=== PATIENT | female | born 1945 | race Caucasian/White ===

== ENCOUNTER 2017-03-21 11:51 | Observation (INO) | payer MEDICARE, BC ==
[~2017-03-21] VITALS: Ht 170.2 cm; Wt 93.5 kg
[~2017-03-21 11:51] MED LIST: CARTIA XT240 MG PO; PANTOPRAZOLE SO40 MG PO; RAMIPRIL5 MG PO; TRIAMTERENE-HC1 EAC2 PO
--- NOTE | 2017-03-21 13:31 | Diagnostic Imaging Report ---
PROCEDURE:CHEST SINGLE (NOT PORTABLE) TECHNIQUE:Portable AP chest INDICATION:UTI; syncope; possible reaction antibiotics. COMPARISON:None. FINDINGS: Lungs are clear and symmetrical inflated. No pleural effusions. Normal heart size, mediastinal contour, and pulmonary vasculature. Intact skeleton. CONCLUSION: No acute abnormality. Dictated by: Rowdy Kang M.D. on 03/21/2017 at 13:38 Electronically approved by: Rowdy Kang M.D. on 03/21/2017 at 13:38
[2017-03-21] MEDS ORDERED: IBUPROFEN 400 MG TAB PO ONE (15:15)
[2017-03-21 15:20] LABS: BASOPHILS # (AUTO) 0.1 (0.0-0.1); BASOPHILS % 0.4 % (0.0-1.0); EOSINOPHILS # (AUTO) 0.2 (0.0-0.4); EOSINOPHILS % 0.9 % (0.0-6.0); HEMATOCRIT 42.6 % (34.2-44.1); HEMOGLOBIN 15.1 g/dL (12.0-16.0); LYMPHOCYTES # (AUTO) 2.1 (1.0-3.2); LYMPHOCYTES % 13.4 % (18.0-39.1); MEAN CORPUSCULAR HEMOGLOBIN 30.9 pg (28-32); MEAN CORPUSCULAR HGB CONC 35.4 g/dL (31-35); MEAN CORPUSCULAR VOLUME 87.1 fL (81-99); MONOCYTES # (AUTO) 0.5 (0.2-0.8); MONOCYTES % 2.8 % (4.4-11.3); PLATELET COUNT 216 x10e3/uL (140-360); RED BLOOD COUNT 4.89 x10e6/uL (3.6-5.1); RED CELL DISTRIBUTION WIDTH 12.5 % (11.7-14.4)
[2017-03-21 15:30] LABS: INR 1.03
[2017-03-21 15:31] LABS: PARTIAL THROMBOPLASTIN TIME 29.7 seconds (23.8-35.5)
[2017-03-21 15:37] LABS: ALBUMIN/GLOBULIN RATIO 0.7 (0.8-2.0); ANION GAP 15.6 mmol/L (8-16); CALCIUM 9.4 mg/dL (8.4-10.2); CREATININE, SERUM 0.97 mg/dL (0.57-1.11); POTASSIUM 3.6 mmol/L (3.5-5.1)
[2017-03-21 15:44] LABS: CREATINE KINASE MB 0.9 ng/mL (0.00-5.00); TROPONIN I 0.011 ng/mL (0-0.300)
[2017-03-21 16:14] LABS: BILIRUBIN,URINE 1+ (NEGATIVE); KETONES,URINE NEGATIVE (NEGATIVE); LEUKOCYTE ESTERASE ,URINE 1+ (NEGATIVE); NITRITE,URINE NEGATIVE (NEGATIVE); URINE UROBILINOGEN 0.2 mg/dL (0.2 - 1)
[2017-03-21 16:16] LABS: CLARITY,URINE SL CLOUDY (CLEAR); COLOR,URINE STRAW (YELLOW); PROTEIN,URINE DIPSTICK TRACE (NEGATIVE)
[2017-03-21 16:28] LABS: WBC,URINE (MAN) 0-5 /HPF (0-5)
[2017-03-21 16:29] LABS: BACTERIA,URINE MODERATE /HPF; EPITHELIAL CELLS,URINE RARE /LPF; RBC,URINE 0-5 /HPF (0-5)
[2017-03-21] MEDS ORDERED: SODIUM CHLORIDE 0.9% 1000ML 1,000 ML IV SCH (18:25)
[2017-03-21] MEDS ORDERED: ONDANSETRON HCL INJ 2 MG/ML VIAL IV PRN (18:30)
[2017-03-21] MEDS ORDERED: DEXTROSE 50% SYRINGE 50 ML IV PRN (18:45)
[2017-03-21] MEDS ORDERED: CARTIA XT240 MG PO (19:09)
[2017-03-21] MEDS ORDERED: CELEBREX100 MG PO (19:09)
[2017-03-21] MEDS: CEFTRIAXONE SOD 1 GM VIAL IV SCH (19:09)
[2017-03-21] MEDS: WATER STERILE 10 ML VIAL IV SCH (19:09)
[2017-03-21] MEDS: SODIUM CHLORIDE 0.9% 1000ML 1,000 ML IV SCH ×2 (19:09→22:19)
[2017-03-21] MEDS ORDERED: UCERIS PO (19:09)
[2017-03-21] MEDS ORDERED: CRESTOR10 MG PO (19:09)
[2017-03-21] MEDS: INSULIN REGULAR, HUMAN 100 UNIT/1 ML 3ML VIAL SQ SCH (20:27)
[2017-03-21 22:07] VITALS: BP 136/60
[2017-03-21 22:40] VITALS: BP 136/60
[2017-03-21 23:38] LABS: CREATINE KINASE 96 IU/L (29-168)
[2017-03-21 23:44] LABS: TROPONIN I < 0.001 ng/mL (0-0.300)
[2017-03-22] VITALS (7 sets, daily range): BP systolic 108–135; BP diastolic 55–67
[2017-03-22] MEDS ORDERED: ACETAMINOPHEN 325 MG TAB PO PRN (06:30)
[2017-03-22] MEDS: TRAMADOL HCL 50 MG TAB PO PRN ×2 (06:39→23:54)
[2017-03-22 06:56] LABS: BASOPHILS # (AUTO) 0.1 (0.0-0.1); BASOPHILS % 0.4 % (0.0-1.0); EOSINOPHILS # (AUTO) 0.5 (0.0-0.4); EOSINOPHILS % 4.2 % (0.0-6.0); HEMATOCRIT 37.7 % (34.2-44.1); HEMOGLOBIN 13.1 g/dL (12.0-16.0); LYMPHOCYTES # (AUTO) 2.2 (1.0-3.2); LYMPHOCYTES % 17.2 % (18.0-39.1); MEAN CORPUSCULAR HEMOGLOBIN 30.8 pg (28-32); MEAN CORPUSCULAR HGB CONC 34.7 g/dL (31-35); MEAN CORPUSCULAR VOLUME 88.7 fL (81-99); MONOCYTES # (AUTO) 0.5 (0.2-0.8); MONOCYTES % 3.5 % (4.4-11.3); NEUTROPHILS # (AUTO) 9.5 (2.1-6.9); NEUTROPHILS % 74.4 % (38.7-80.0); PLATELET COUNT 216 x10e3/uL (140-360); RED BLOOD COUNT 4.25 x10e6/uL (3.6-5.1); RED CELL DISTRIBUTION WIDTH 12.7 % (11.7-14.4)
--- NOTE | 2017-03-22 06:57 | History and Physical ---
PRIMARY CARE PHYSICIAN: Dr. Gardner (sp?) CHIEF COMPLAINT: Passing out and urinary tract infection. HISTORY OF PRESENT ILLNESS: This is a 71-year-old woman with a history of urinary tract infection, who developed urinary discomfort about 7 days ago, started on antibiotics by primary care doctor. Symptoms were not really getting better. Patient had reduced urine output, rigors, angina, and not feeling well. Yesterday, she passed out and with face looking up at the ceiling, lying on her back. She called 911 and came to the hospital for further evaluation and management. PAST MEDICAL HISTORY: Prediabetes, Paget's disease, status post right mastectomy in 2000, osteoarthritis, urinary tract infection, E. coli. PAST SURGICAL HISTORY: Right mastectomy in 2000, hysterectomy, cholecystectomy. ALLERGIES: PER ELECTRONIC MEDICAL RECORD. FAMILY HISTORY/SOCIAL HISTORY: Patient is . She has 1 child. No alcohol, illicits or cigarettes. MEDICATIONS: Per electronic medical record. REVIEW OF SYSTEMS: Denies any dizziness or chest pain. PHYSICAL EXAMINATION VITAL SIGNS: Reviewed. GENERAL APPEARANCE: Tired-appearing man resting in bed. HEENT: Anicteric. Pupils respond to light. No oral lesions. CARDIOVASCULAR: Normal S1, S2. LUNGS: Coarse breath sounds. ABDOMEN: Soft, nontender, nondistended. EXTREMITIES: No edema, calf tenderness. NEUROLOGICAL: Alert and oriented times 3. Moving extremities. SKIN: Dry. PSYCHIATRIC: Normal affect. LABS: Reviewed. MEDICATIONS: Reviewed. ASSESSMENT AND PLAN: This is a 71-year-old woman. 1. Syncope. Likely related to the urinary tract infection; however, will need to do a workup. Will get a 2-dimensional echocardiogram cardiogram and carotid ultrasounds. 2. Urinary tract infection. She states she has Escherichia coli. Will treat her with ceftriaxone and followup cultures. 3. Acute kidney injury. Will give intravenous fluids and reassess. 4. Hyponatremia. Will rehydrate patient. 5. Dehydration. Will rehydrate patient. Rule out syncope. Will obtain orthostatic vital signs. 6. Leukocytosis. Likely related to urinary tract infection. 7. Obesity. Body mass index is 30.5/prediabetes. Will obtain hemoglobin A1c and lipid panel. 8. Prophylaxis. Lovenox and proton pump inhibitor. 9. Disposition. Obtain orthostatic vitals. Get physical therapy. Job#: [id number] CQ
[2017-03-22 07:23] LABS: TROPONIN I 0.009 ng/mL (0-0.300)
[2017-03-22] MEDS: INSULIN REGULAR, HUMAN 100 UNIT/1 ML 3ML VIAL SQ SCH ×4 (07:30→20:27)
[2017-03-22 07:31] LABS: ANION GAP 14.6 mmol/L (8-16); BLOOD UREA NITROGEN 20 mg/dL (7-26); BUN/CREATININE RATIO 24 (6-25); CALCIUM 8.6 mg/dL (8.4-10.2); CARBON DIOXIDE 24 mmol/L (22-29); CHLORIDE 100 mmol/L (98-107); CREATINE KINASE 86 IU/L (29-168); CREATININE, SERUM 0.85 mg/dL (0.57-1.11); EST GLOMERULAR FILTRATION RATE > 60 ML/MIN (60-); GLUCOSE 64 mg/dL (74-118); POTASSIUM 3.6 mmol/L (3.5-5.1); SODIUM 135 mmol/L (136-145)
[2017-03-22 07:51] LABS: CHOL/HDL RATIO 8.7 (3.0-3.6)
[2017-03-22] MEDS: RAMIPRIL 5 MG CAP PO SCH (08:49)
[2017-03-22] MEDS: PANTOPRAZOLE SOD 40 MG TABEC PO SCH (08:49)
[2017-03-22] MEDS: SODIUM CHLORIDE 0.9% 1000ML 1,000 ML IV SCH ×3 (10:49→21:35)
[2017-03-22 15:18] LABS: CREATINE KINASE MB 1.3 ng/mL (0.00-5.00); TROPONIN I 0.006 ng/mL (0-0.300)
[2017-03-22] MEDS: WATER STERILE 10 ML VIAL IV SCH (17:17)
[2017-03-22] MEDS: CEFTRIAXONE SOD 1 GM VIAL IV SCH (17:17)
[2017-03-22] MEDS ORDERED: SIMVASTATIN 20 MG TAB PO SCH (21:00)
[2017-03-23] VITALS: BP 133/69
[2017-03-23 04:00] VITALS: BP 127/59
[2017-03-23] MEDS: TRAMADOL HCL 50 MG TAB PO PRN (04:35)
[2017-03-23] MEDS: SODIUM CHLORIDE 0.9% 1000ML 1,000 ML IV SCH (05:00)
[2017-03-23] MEDS ORDERED: KEFLEX500 MG PO (05:58)
--- NOTE | 2017-03-23 06:43 | Discharge Summary ---
PRINCIPAL DIAGNOSES 1. Syncope with normal echocardiogram and no significant stenosis in the carotids. 2. Urinary tract infection. Culture negative. 3. Acute kidney injury. 4. Dehydration. 5. Obesity. Body mass index 30.5. 6. Prediabetes. Hemoglobin A1c 5.9. SECONDARY DIAGNOSIS: Prediabetes. CHIEF COMPLAINT: Passing out. HISTORY OF PRESENT ILLNESS: A 71-year-old woman who passed out. For further details of the history of present illness, refer to the H and P. HOSPITAL COURSE: Patient had a syncopal episode. Echocardiogram normal. Carotid ultrasound negative. No significant stenosis. She had a urinary tract infection and cultures negative. Treated with ceftriaxone. Leukocytosis has been resolving. She will be discharged home on Keflex for 5 additional days. She had hyponatremia and dehydrated treated with IV fluids. Orthostatic vitals were negative. She had obesity with BMI of 30.5. Patient had prediabetes. Hemoglobin A1c here is 5.9. LDL is 81. Patient is doing better and currently appropriate for discharge. Refuses home physical therapy. Therefore, she will be discharged home with plan for followup with her primary care doctor in 1 week. CONDITION ON DISCHARGE: Stable and improving. DISCHARGE LOCATION: Home. FOLLOWUP: Primary care doctor in 1 week. ALYSSA CURRIE MD Job#: [id number]
[2017-03-23 06:56] LABS: BASOPHILS # (AUTO) 0.1 (0.0-0.1); BASOPHILS % 0.5 % (0.0-1.0); EOSINOPHILS # (AUTO) 0.6 (0.0-0.4); EOSINOPHILS % 6.5 % (0.0-6.0); HEMOGLOBIN 11.3 g/dL (12.0-16.0); LYMPHOCYTES % 31.2 % (18.0-39.1); MEAN CORPUSCULAR HEMOGLOBIN 30.8 pg (28-32); MEAN CORPUSCULAR HGB CONC 34.2 g/dL (31-35); MEAN CORPUSCULAR VOLUME 89.9 fL (81-99); MONOCYTES # (AUTO) 0.5 (0.2-0.8); MONOCYTES % 5.6 % (4.4-11.3); NEUTROPHILS # (AUTO) 5.4 (2.1-6.9); NEUTROPHILS % 55.8 % (38.7-80.0); PLATELET COUNT 238 x10e3/uL (140-360); RED BLOOD COUNT 3.67 x10e6/uL (3.6-5.1); RED CELL DISTRIBUTION WIDTH 12.8 % (11.7-14.4)
[2017-03-23] MEDS: INSULIN REGULAR, HUMAN 100 UNIT/1 ML 3ML VIAL SQ SCH (07:30)
[2017-03-23 08:05] VITALS: BP 120/58
[2017-03-23] MEDS: RAMIPRIL 5 MG CAP PO SCH (08:57)
[2017-03-23] MEDS: PANTOPRAZOLE SOD 40 MG TABEC PO SCH (08:57)
== END 2017-03-23 09:18 | disposition home or self-care (01) ==
LOC: ER 11:51 → ERHOLD 19:01 → IMCU 21:04
PROVIDERS: ADMIT Internal Medicine; ATTEND Internal Medicine
DX: R55 Syncope and collapse (principal); R78.81 Bacteremia; N30.91 Cystitis, unspecified with hematuria; N39.0 Urinary tract infection, site not specified; B96.20 Unspecified Escherichia coli [E. coli] as the cause of diseases classified elsewhere; N17.9 Acute kidney failure, unspecified; E87.1 Hypo-osmolality and hyponatremia; E86.0 Dehydration; E66.9 Obesity, unspecified; Z68.30 Body mass index [BMI] 30.0-30.9, adult; R73.09 Other abnormal glucose
CPT/HCPCS: 36415 ×3; 71010; 80048; 80053; 80061; 81001; 82550 ×2; 82553 ×2; 82948 ×3; 83036; 83880; 84484 ×2; 85025 ×3; 85610; 85730; 87086; 87400; 93005; 93306; 93880; 97116; 97161; 99284; G0378 ×3; G8978; G8979; G8980; J0696 ×2; J7030 ×3

== ENCOUNTER → 2018-02-01 | Day surgery (SDC) | payer MEDICARE ==
[2018-01-29 14:46] LABS: BASOPHILS # (AUTO) 0.1 (0.0-0.1); BASOPHILS % 0.8 % (0.0-1.0); EOSINOPHILS # (AUTO) 0.1 (0.0-0.4); EOSINOPHILS % 1.4 % (0.0-6.0); HEMOGLOBIN 14.8 g/dL (12.0-16.0); LYMPHOCYTES # (AUTO) 2.8 (1.0-3.2); LYMPHOCYTES % 37.8 % (18.0-39.1); MEAN CORPUSCULAR HEMOGLOBIN 30.6 pg (28-32); MEAN CORPUSCULAR HGB CONC 33.6 g/dL (31-35); MEAN CORPUSCULAR VOLUME 91.1 fL (81-99); MONOCYTES # (AUTO) 0.7 (0.2-0.8); NEUTROPHILS # (AUTO) 3.6 (2.1-6.9); NEUTROPHILS % 49.7 % (38.7-80.0); PLATELET COUNT 305 x10e3/uL (140-360); RED BLOOD COUNT 4.83 x10e6/uL (3.6-5.1); RED CELL DISTRIBUTION WIDTH 12.4 % (11.7-14.4)
[2018-01-29 15:05] LABS: ANION GAP 12.8 mmol/L (8-16); BLOOD UREA NITROGEN 14 mg/dL (7-26); BUN/CREATININE RATIO 17 (6-25); CALCIUM 9.8 mg/dL (8.4-10.2); CARBON DIOXIDE 29 mmol/L (22-29); CHLORIDE 102 mmol/L (98-107); CREATININE, SERUM 0.83 mg/dL (0.57-1.11); EST GLOMERULAR FILTRATION RATE > 60 ML/MIN (60-); GLUCOSE 83 mg/dL (74-118); POTASSIUM 3.8 mmol/L (3.5-5.1); SODIUM 140 mmol/L (136-145)
[~2018-02-01] MED LIST changes: +BUPIVACAINE 0.25% 30ML SDV INJ ONE; +CELEBREX100 MG PO; +CRESTOR10 MG PO; +DEXAMETHASONE SOD PHOS INJ 4 MG/ML VIAL IV ONE; +FENTANYL CITRATE/PF 100MCG/2 ML INJ ONE; +HEPARIN SOD (PORCINE) 5,000 UNIT/ML VIAL ONE; +HYDROCODONE/APAP 7.5MG-325MG 1 EA TAB ONE; +KEFLEX500 MG PO; +LIDOCAINE HCL 2% LOCAL INJ 5 ML SDV VIAL INJ ONE; +LOMOTIL TABLET1 EACH PO; +MIDAZOLAM HCL 2 MG/2 ML VIAL ONE; +ONDANSETRON HCL INJ 2 MG/ML VIAL IV ONE; +PROPOFOL IV EMULSION 10 MG/ML 20 ML VIAL IV ONE; +SEVOFLURANE INHAL SOLN 250 ML PEN BTL INH ONE; +SODIUM CHLORIDE 0.9% 100 ML 0 ML ONE; +SODIUM CHLORIDE 0.9% 500ML 500 ML ONE; +UCERIS PO
--- OUTSIDE RECORDS SUMMARY | 2018-02-01 11:00 | XMS REPORT ---
Author [facility] Address Unknown Phone Unavailable Care Team Providers Care [employer] Name Role Phone Dasia SHAHID Unavailable Unavailable AMANDA JACOBS Unavailable Unavailable Payers Payer Name Policy Type Policy Number Effective Date Expiration Date Problems This patient has no known problems. Allergies, Adverse Reactions, Alerts Allergy Name Allergy Type Status Severity Reaction(s) Onset Date Inactive Date Treating Clinician Comments PONSTEL DA Active U 2005-04-10 00:00:00 TAPE DA Active U 2005-04-10 00:00:00 Medications This patient has no known medications. Results Test Description Test Time Test Comments Text Results Atomic Results Result Comments CHEST SINGLE (NOT PORTABLE) [place] [id number] Patient Name: DORA MCKOY MR #: [id number] : 1945 Age/Sex: 71/F Req #: [id number] Adm Physician: Ordered by: JESSA SHAHID MD Report #: [id number] Location: ER Room/Bed: Procedure: [id number] DX/CHEST SINGLE (NOT PORTABLE) Exam Date: 03/21/17 Exam Time: 1310 REPORT STATUS: Signed PROCEDURE: CHEST SINGLE (NOT PORTABLE) TECHNIQUE: Portable AP chest INDICATION: UTI; syncope; possible reaction antibiotics. COMPARISON: None. FINDINGS: Lungs are clear and symmetrical inflated. No pleural effusions. Normal heart size, mediastinal contour, and pulmonary vasculature. Intact skeleton. CONCLUSION: No acute abnormality. Dictated by: Jazzy Kang M.D. on 03/21/2017 at 13:38 Electronically approved by: Jazzy Kang M.D. on 03/21/2017 at 13:38 Dictated By: JAZZY KANG MD 37 Transcribed By: RASTA on 03/21/171337 COPY TO: JESSA SHAHID MD HIPS BILAT TWO VWS(+/- PELVIS) [place] [address] Patient Name: DORA MCKOY MR #: [id number] : 1945 Age/Sex: 71/F Req #: [id number] Adm Physician: Ordered by: AMANDA JACOBS MD Report #: [id number] Location: [facility] Room/Bed: Procedure: [id number] DX/HIPS BILAT TWO VWS(+/- PELVIS) Exam Date: Exam Time: REPORT STATUS: Signed PROCEDURE: HIPS BILAT TWO VWS(+/- PELVIS) TECHNIQUE: INDICATION: COMPARISON: None. FINDINGS: No acute fracture or dislocation. Bone mineralization is within normal limits. Degenerative changes evidenced by subchondral sclerosis and marginal osteophytosis. The soft tissues are unremarkable. No expansile or lytic or sclerotic lesion. CONCLUSION: No acute radiographic abnormality. Dictated by: Rosey Valdez M.D. on 01/02/2017 at 11:47 Electronically approved by: Rosey Valdez M.D. on 01/02/2017 at 11:47 Dictated By: ROSEY VALDEZ MD 1147 Transcribed By: RASTA on 01/02/17 1147 COPY TO: AMANDA JACOBS MD SP LUMBAR, COMPLETE MIN 4VW [place] [address] Patient Name: DORA MCKOY MR #: [id number] : 1945 Age/Sex: 71/F Req #: [id number] Adm Physician: Ordered by: AMANDA JACOBS MD Report #: [id number] Location: [facility] Room/Bed: Procedure: [id number] DX/SP LUMBAR, COMPLETE MIN 4VW Exam Date: 01/02/17 Exam Time: 1050 REPORT STATUS: Signed PROCEDURE: L-SPINE COMPLETE COMPARISON: None. INDICATIONS: LOWER BACK PAIN FINDINGS: There are 5 lumbar-type vertebral bodies. Degenerative changes evidenced by anterior osteophytosis at multiple levels and bilateral facet hypertrophy at L4/L5 and L5/S1. The vertebral bodies are well-aligned without evidence of spondylolisthesis. There are no fractures, lytic or blastic lesions. The disc-space heights are well-maintained. The sacroiliac joints are unremarkable. CONCLUSION: No acute radiographic abnormality. Degenerative changes. Dictated by: Rosey Valdez M.D. on 01/02/2017 at 11:51 Electronically approved by: Rosey Valdez M.D. on 01/02/2017 at 11:51 Dictated By: ROSEY VALDEZ MD 1151 Transcribed By: RASTA on 01/02/17 1151 COPY TO: AMANDA JACOBS MD
[2018-02-01 14:15] VITALS: BP 141/73
--- NOTE | 2018-02-01 15:14 | Operative Report ---
DATE OF PROCEDURE: February 01, 2018 PREOPERATIVE DIAGNOSIS: Breast cancer needing intravenous access for chemotherapy. POSTOPERATIVE DIAGNOSIS: Breast cancer needing intravenous access for chemotherapy. OPERATION PERFORMED: Placement of right subclavian venous access port under C-arm guidance. ANESTHESIA: General. COMPLICATIONS: None. ESTIMATED BLOOD LOSS: Minimal. DESCRIPTION OF PROCEDURE: With the patient lying in bed in the Trendelenburg position, under good general anesthesia, the right chest and neck were prepped with Betadine solution and draped in the usual manner. A standard right subclavian venipuncture was performed without any difficulty, and a guidewire was advanced into central venous position. Using the C-arm, the tip of the guidewire was found to be at the level of the superior vena cava, and the right lung was fully expanded. A pocket was then created in the right anterior chest to accept the reservoir, and the catheter was threaded to the subclavian position. The reservoir was then anchored to the anterior chest wall with interrupted sutures of 2-0 silk. The reservoir and catheter were fully heparinized, and the catheter was cut to the appropriate length. The peel-away sheath introducer was then placed over the guidewire. The guidewire was removed, and the catheter was threaded through the peel-away sheath introducer. The peel-away sheath was then removed. There was good blood return, and the reservoir was fully heparinized. Using the C-arm, the tip of the catheter was confirmed to be at the level of the superior vena cava, and the right lung was fully expanded. The wounds were then closed in layers. The subcutaneous tissue was approximated with 3-0 and 4-0 Vicryl. The skin was closed with subcuticular 5-0 Vicryl. Benzoin and Steri-Strips were applied. A dressing was placed. The sponge, lap and needle count was correct. The patient tolerated the procedure well and returned to the recovery room in stable condition. Job#: [id number]
== END | disposition home or self-care (01) ==
LOC: OR 10:57
PROVIDERS: ATTEND Surgery
DX: C50.912 Malignant neoplasm of unspecified site of left female breast (principal); I10 Essential (primary) hypertension; R73.03 Prediabetes; I45.10 Unspecified right bundle-branch block; Z01.810 Encounter for preprocedural cardiovascular examination; Z01.812 Encounter for preprocedural laboratory examination
CPT/HCPCS: 36415; 36561; 77001; 80048; 85025; 93005; C1751; J1100; J1644; J2001; J2250; J2405; J2704; J7040

== ENCOUNTER 2018-02-19 14:46 | Inpatient (IN) | payer MEDICARE ==
[~2018-02-19] VITALS: Ht 167.6 cm; Wt 93.5 kg
[~2018-02-19 14:46] MED LIST changes: -BUPIVACAINE 0.25% 30ML SDV INJ ONE; -DEXAMETHASONE SOD PHOS INJ 4 MG/ML VIAL IV ONE; -FENTANYL CITRATE/PF 100MCG/2 ML INJ ONE; -HEPARIN SOD (PORCINE) 5,000 UNIT/ML VIAL ONE; -HYDROCODONE/APAP 7.5MG-325MG 1 EA TAB ONE; -LIDOCAINE HCL 2% LOCAL INJ 5 ML SDV VIAL INJ ONE; -LOMOTIL TABLET1 EACH PO; -MIDAZOLAM HCL 2 MG/2 ML VIAL ONE; -ONDANSETRON HCL INJ 2 MG/ML VIAL IV ONE; -PROPOFOL IV EMULSION 10 MG/ML 20 ML VIAL IV ONE; -SEVOFLURANE INHAL SOLN 250 ML PEN BTL INH ONE; -SODIUM CHLORIDE 0.9% 100 ML 0 ML ONE; -SODIUM CHLORIDE 0.9% 500ML 500 ML ONE
[2018-02-19] MEDS ORDERED: SODIUM CHLORIDE 0.9% 1000ML 1,000 ML IV STA (14:59)
[2018-02-19] MEDS ORDERED: MORPHINE SULFATE 2 MG/ML SYR IV NR (15:00)
[2018-02-19] MEDS ORDERED: ONDANSETRON HCL INJ 2 MG/ML VIAL IV NR (15:00)
[2018-02-19 15:29] LABS: BASOPHILS # (AUTO) 0.2 (0.0-0.1); EOSINOPHILS % 0.1 % (0.0-6.0); HEMATOCRIT 48.4 % (34.2-44.1); HEMOGLOBIN 16.4 g/dL (12.0-16.0); LYMPHOCYTES # (AUTO) 2.9 (1.0-3.2); LYMPHOCYTES % 19.7 % (18.0-39.1); MEAN CORPUSCULAR HEMOGLOBIN 30.3 pg (28-32); MEAN CORPUSCULAR HGB CONC 33.9 g/dL (31-35); MEAN CORPUSCULAR VOLUME 89.5 fL (81-99); MONOCYTES % 6.6 % (4.4-11.3); NEUTROPHILS # (AUTO) 10.2 (2.1-6.9); PLATELET COUNT 274 x10e3/uL (140-360); RED BLOOD COUNT 5.41 x10e6/uL (3.6-5.1); RED CELL DISTRIBUTION WIDTH 13.2 % (11.7-14.4)
[2018-02-19 15:44] LABS: ALANINE AMINOTRANSFERASE 36 IU/L (0-55); ALBUMIN 4.1 g/dL (3.5-5.0); ALBUMIN/GLOBULIN RATIO 1.3 (0.8-2.0); ALKALINE PHOSPHATASE 96 IU/L (40-150); ANION GAP 16.9 mmol/L (8-16); BLOOD UREA NITROGEN 6 mg/dL (7-26); BUN/CREATININE RATIO 9 (6-25); CALCIUM 9.8 mg/dL (8.4-10.2); CARBON DIOXIDE 23 mmol/L (22-29); CHLORIDE 100 mmol/L (98-107); EST GLOMERULAR FILTRATION RATE > 60 ML/MIN (60-); GLUCOSE 88 mg/dL (74-118); LIPASE 10 U/L (8-78); SODIUM 137 mmol/L (136-145)
[2018-02-19 15:49] LABS: POTASSIUM 2.9 mmol/L (3.5-5.1)
[2018-02-19 16:06] LABS: THYROID STIMULATING HORMONE 1.528 uIU/mL (0.350-4.940)
[2018-02-19] MEDS ORDERED: ACETAMINOPHEN 1000 MG/100 ML IV NR (16:09)
[2018-02-19 16:31] LABS: BILIRUBIN,URINE NEGATIVE (NEGATIVE); CLARITY,URINE SL CLOUDY (CLEAR); COLOR,URINE YELLOW (YELLOW); KETONES,URINE 1+ (NEGATIVE); LEUKOCYTE ESTERASE ,URINE TRACE (NEGATIVE); NITRITE,URINE NEGATIVE (NEGATIVE); PROTEIN,URINE DIPSTICK NEGATIVE (NEGATIVE); URINE UROBILINOGEN 0.2 mg/dL (0.2 - 1)
[2018-02-19 16:46] LABS: EPITHELIAL CELLS,URINE FEW /LPF; RENAL EPITHELIAL CELLS,URINE FEW
[2018-02-19 16:49] LABS: LYMPHOCYTES % (MANUAL) 25 % (19-48); MONOCYTES % (MANUAL) 12 % (3.4-9.0); NEUTROPHILS % (MANUAL) 63 % (40-74); PLATELET ESTIMATE ADEQUATE; PLATELET MORPHOLOGY COMMENT NORMAL; POLYCHROMASIA MODE; RBC MORPHOLOGY COMMENT NORMAL
[2018-02-19] MEDS ORDERED: POTASSIUM CHLORIDE 20MEQ/100ML 200 ML IV ONE (17:00)
--- NOTE | 2018-02-19 17:20 | Diagnostic Imaging Report ---
EXAM: CT Abdomen and Pelvis WITH contrast INDICATION: Pain COMPARISON: None. TECHNIQUE: Abdomen and Pelvis was scanned utilizing a multidetector helical scanner after administration of IV contrast. Coronal and sagittal reformations were obtained. IV CONTRAST: 100 mL Isovue-370 COMPLICATIONS: None RADIATION DOSE: Total DLP:736 mGy*cm Estimated effective dose: (DLP x 0.015 x size factor) mSv CTDIvol has been reviewed. It is below the limits set by the Radiation Protocol Committee (RPC). Appropriate CT dose reduction techniques were utilized. FINDINGS: Abdomen: Lung Bases: No acute findings. Solid Organs: Cystic lesions left hepatic lobe. To small to characterize hypodensities kidneys. Solid organs otherwise unremarkable. Upper GI Tract: No small bowel obstructive changes. Vascularity: Vascular calcifications with no aortic aneurysm. Lymph Nodes: No suspicious adenopathy. Other: None. Pelvis: Bladder: Unremarkable. Other: Uterus absent. Colon: Scattered diverticula sigmoid colon with no CT evidence of diverticulitis. Appendix not inflamed. Overall decompression of the colon limits evaluation. Bones: Degenerative changes. IMPRESSION: 1. No definite acute findings within the abdomen or pelvis. 2. Diverticulosis. Subtle diverticulitis possible, with no significant inflammation or abscess identified, however. Signed by: Dr. Dorian Wolfe MD on 02/19/2018 5:17 PM
[2018-02-19] MEDS: PIPER-TAZ 3.375 GM 50 ML IV SCH (18:35)
[2018-02-19] MEDS ORDERED: SODIUM CHLORIDE 0.9% 500ML 500 ML ONE (19:10)
[2018-02-19] MEDS ORDERED: SODIUM CHLORIDE 0.9% 500ML 500 ML IV ONE (19:15)
[2018-02-19] MEDS ORDERED: MORPHINE SULFATE 2 MG/ML SYR IV PRN (19:15)
[2018-02-19] MEDS: SODIUM CHLORIDE 0.9% 1000ML 1,000 ML IV SCH (20:21)
[2018-02-19 21:15] VITALS: BP 159/77
[2018-02-19 22:10] VITALS: BP 116/67
[2018-02-19 22:26] VITALS: BP 116/67
[2018-02-19] MEDS ORDERED: IOPAMIDOL 370 MG/ML 200 ML INFUS..BTL INJ ONE (22:53)
[2018-02-19] MEDS ORDERED: SODIUM CHLORIDE 0.9% 50ML 50 ML ONE (22:53)
[2018-02-20] VITALS (8 sets, daily range): BP systolic 108–160; BP diastolic 59–88
[2018-02-20] MEDS ORDERED: DIPHENOXYLATE/ATROPINE TAB PO ONE ×2 (02:30)
[2018-02-20 05:15] LABS: BASOPHILS # (AUTO) 0.2 (0.0-0.1); BASOPHILS % 1.2 % (0.0-1.0); EOSINOPHILS % 0.1 % (0.0-6.0); HEMATOCRIT 43.9 % (34.2-44.1); HEMOGLOBIN 14.5 g/dL (12.0-16.0); LYMPHOCYTES # (AUTO) 3.4 (1.0-3.2); MEAN CORPUSCULAR HEMOGLOBIN 30.1 pg (28-32); MEAN CORPUSCULAR VOLUME 91.3 fL (81-99); MONOCYTES # (AUTO) 1.3 (0.2-0.8); MONOCYTES % 7.6 % (4.4-11.3); NEUTROPHILS # (AUTO) 11.8 (2.1-6.9); NEUTROPHILS % 69.4 % (38.7-80.0); PLATELET COUNT 237 x10e3/uL (140-360); RED BLOOD COUNT 4.81 x10e6/uL (3.6-5.1); RED CELL DISTRIBUTION WIDTH 13.3 % (11.7-14.4)
[2018-02-20 06:01] LABS: ALANINE AMINOTRANSFERASE 27 IU/L (0-55); ALBUMIN 3.6 g/dL (3.5-5.0); ALBUMIN/GLOBULIN RATIO 1.3 (0.8-2.0); ALKALINE PHOSPHATASE 83 IU/L (40-150); BLOOD UREA NITROGEN 5 mg/dL (7-26); BUN/CREATININE RATIO 7 (6-25); CALCIUM 8.9 mg/dL (8.4-10.2); CARBON DIOXIDE 22 mmol/L (22-29); CHLORIDE 107 mmol/L (98-107); CREATININE, SERUM 0.67 mg/dL (0.57-1.11); EST GLOMERULAR FILTRATION RATE > 60 ML/MIN (60-); GLUCOSE 82 mg/dL (74-118); SODIUM 138 mmol/L (136-145)
[2018-02-20] MEDS: PIPER-TAZ 3.375 GM 50 ML IV SCH ×4 (06:47→17:13)
[2018-02-20] MEDS: SODIUM CHLORIDE 0.9% 1000ML 1,000 ML IV SCH ×4 (06:47→23:40)
[2018-02-20] MEDS ORDERED: POTASSIUM CHLORIDE 20MEQ/100ML 200 ML IV ONE (07:30)
--- NOTE | 2018-02-20 07:55 | History and Physical ---
A 72-year-old female with a history of breast cancer undergoing chemotherapy arrives with abdominal pain, diarrhea and cramping. HISTORY OF PRESENT ILLNESS: This is Ms. Phoenix with a history of left breast cancer undergoing therapy. Was in her usual state of health until about 2 days prior to admission. The patient started having some abdominal pain, but 1 day prior to admission the cramping got incessant and increasing in nature, and came in. Was found to have early signs of diverticulitis by CT. The patient is admitted for the same. PAST MEDICAL HISTORY: History of hypertension, history of anxiety, history of hyperlipidemia. MEDICATIONS: She takes at home are: 1. Diltiazem 240 mg q.24 h. 2. Ramipril 5 mg daily. 3. Rosuvastatin 10 mg. SURGICAL HISTORY: History of right mastectomy, cholecystectomy, hysterectomy, history of breast cancer on the right side too. SOCIAL HISTORY: No ETOH. No IV drug abuse. Undergoing chemotherapy. FAMILY HISTORY: Hypertension and cancer in sister, and Alzheimer's disease in father. REVIEW OF SYSTEMS: Negative for chest pain. No shortness of breath. No nausea or vomiting. Positive for diarrhea. Positive for loose watery stools. No diplopia. No blurry vision. No headache either. PHYSICAL EXAMINATION GENERAL: The patient is alert and oriented times 3. VITAL SIGNS: Temperature is 96.9, blood pressure is 159/77 and today is 108/59. HEENT: Normocephalic and atraumatic. Pupils are reactive to light and accommodation. CV: S1 and S2 normal. Regular rate and rhythm. ABDOMEN: Tender in the left lower quadrant. EXTREMITIES: No clubbing. No cyanosis. No edema. LABORATORY VALUES: White count was 14,000 yesterday, hemoglobin 16.4, neutrophil count 10.2, white count today is 17,000 with a left shift. Chemistry show a sodium of 137, potassium 3.9, BUN 6, creatinine 0.7. Today, potassium is 3. CT scan shows no acute findings of diverticulosis, subtle diverticulitis possible with no significant inflammation or abscess identified. ASSESSMENT 1. Abdominal pain and colitis possibly secondary to chemotherapy and/or because of early signs of diverticulitis: Plan is to continue with the Zosyn that she is on right now. Lomotil will be given. Also, continue with intravenous fluids for fluid resuscitation. 2. History of chemotherapy for left breast cancer. 3. Hypertension: Will hold off on antihypertensives because of the low blood pressure. Urine culture and blood cultures are pending. Will continue monitoring the patient. Rehydration will be done. Hypokalemia will be replaced. For further information, look in the chart. Job#: [id number] JOHN
[2018-02-20] MEDS: DIPHENOXYLATE/ATROPINE TAB PO PRN ×2 (09:30→13:41)
[2018-02-20] MEDS ORDERED: DILTIAZEM HCL 240 MG PO SCH (13:00)
[2018-02-20] MEDS: RAMIPRIL 5 MG CAP PO SCH (13:19)
[2018-02-20] MEDS: DILTIAZEM HCL ER 120 MG CAPCR PO SCH (13:19)
[2018-02-20] MEDS ORDERED: SIMVASTATIN 40 MG TAB PO SCH (21:00)
[2018-02-20] MEDS: SIMVASTATIN 20 MG TAB PO SCH (21:00)
[2018-02-21] VITALS (8 sets, daily range): BP systolic 135–151; BP diastolic 63–70
[2018-02-21 05:13] LABS: BASOPHILS # (AUTO) 0.1 (0.0-0.1); BASOPHILS % 1.4 % (0.0-1.0); EOSINOPHILS % 0.4 % (0.0-6.0); HEMATOCRIT 38.7 % (34.2-44.1); HEMOGLOBIN 12.9 g/dL (12.0-16.0); LYMPHOCYTES # (AUTO) 2.8 (1.0-3.2); LYMPHOCYTES % 27.6 % (18.0-39.1); MEAN CORPUSCULAR HEMOGLOBIN 30.5 pg (28-32); MEAN CORPUSCULAR HGB CONC 33.3 g/dL (31-35); MEAN CORPUSCULAR VOLUME 91.5 fL (81-99); MONOCYTES # (AUTO) 0.7 (0.2-0.8); MONOCYTES % 7.2 % (4.4-11.3); NEUTROPHILS # (AUTO) 6.3 (2.1-6.9); NEUTROPHILS % 61.6 % (38.7-80.0); PLATELET COUNT 240 x10e3/uL (140-360); RED BLOOD COUNT 4.23 x10e6/uL (3.6-5.1); RED CELL DISTRIBUTION WIDTH 13.7 % (11.7-14.4)
[2018-02-21] MEDS: PIPER-TAZ 3.375 GM 50 ML IV SCH ×4 (05:34→18:06)
[2018-02-21 05:36] LABS: ALANINE AMINOTRANSFERASE 62 IU/L (0-55); ALBUMIN 3.1 g/dL (3.5-5.0); ALBUMIN/GLOBULIN RATIO 1.3 (0.8-2.0); ALKALINE PHOSPHATASE 77 IU/L (40-150); ANION GAP 11.3 mmol/L (8-16); BLOOD UREA NITROGEN < 5 mg/dL (7-26); CALCIUM 8.3 mg/dL (8.4-10.2); CARBON DIOXIDE 23 mmol/L (22-29); CHLORIDE 112 mmol/L (98-107); CREATININE, SERUM 0.62 mg/dL (0.57-1.11); EST GLOMERULAR FILTRATION RATE > 60 ML/MIN (60-); GLUCOSE 84 mg/dL (74-118); POTASSIUM 3.3 mmol/L (3.5-5.1); SODIUM 143 mmol/L (136-145)
[2018-02-21 05:42] LABS: BUN/CREATININE RATIO 8 (6-25)
[2018-02-21] MEDS ORDERED: POTASSIUM CHLORIDE 20 MEQ TAB CR PO STA (07:53)
[2018-02-21] MEDS: DIPHENOXYLATE/ATROPINE TAB PO PRN (08:55)
[2018-02-21] MEDS: RAMIPRIL 5 MG CAP PO SCH (09:00)
[2018-02-21] MEDS: DILTIAZEM HCL ER 120 MG CAPCR PO SCH (09:00)
[2018-02-21] MEDS: SODIUM CHLORIDE 0.9% 1000ML 1,000 ML IV SCH ×2 (11:45→22:14)
[2018-02-21] MEDS: SIMVASTATIN 20 MG TAB PO SCH (22:07)
[2018-02-21] MEDS ORDERED: DIPHENOXYLATE/ATROPINE TAB PO ONE (23:45)
[2018-02-22] VITALS (8 sets, daily range): BP systolic 126–138; BP diastolic 59–93
[2018-02-22] MEDS: PIPER-TAZ 3.375 GM 50 ML IV SCH ×4 (00:40→16:11)
[2018-02-22] MEDS: SODIUM CHLORIDE 0.9% 1000ML 1,000 ML IV SCH ×3 (03:14→18:49)
[2018-02-22 05:18] LABS: BASOPHILS # (AUTO) 0.2 (0.0-0.1); BASOPHILS % 1.6 % (0.0-1.0); EOSINOPHILS # (AUTO) 0.1 (0.0-0.4); EOSINOPHILS % 0.8 % (0.0-6.0); HEMATOCRIT 38.8 % (34.2-44.1); HEMOGLOBIN 12.6 g/dL (12.0-16.0); LYMPHOCYTES % 30.1 % (18.0-39.1); MEAN CORPUSCULAR HEMOGLOBIN 29.8 pg (28-32); MEAN CORPUSCULAR HGB CONC 32.5 g/dL (31-35); MEAN CORPUSCULAR VOLUME 91.7 fL (81-99); MONOCYTES # (AUTO) 0.9 (0.2-0.8); NEUTROPHILS # (AUTO) 5.7 (2.1-6.9); NEUTROPHILS % 57.1 % (38.7-80.0); PLATELET COUNT 247 x10e3/uL (140-360); RED BLOOD COUNT 4.23 x10e6/uL (3.6-5.1); RED CELL DISTRIBUTION WIDTH 13.8 % (11.7-14.4)
[2018-02-22 05:41] LABS: ALANINE AMINOTRANSFERASE 41 IU/L (0-55); ALBUMIN 3.2 g/dL (3.5-5.0); ALBUMIN/GLOBULIN RATIO 1.5 (0.8-2.0); ALKALINE PHOSPHATASE 74 IU/L (40-150); ANION GAP 13.1 mmol/L (8-16); BLOOD UREA NITROGEN < 5 mg/dL (7-26); CALCIUM 8.4 mg/dL (8.4-10.2); CARBON DIOXIDE 23 mmol/L (22-29); CHLORIDE 109 mmol/L (98-107); CREATININE, SERUM 0.58 mg/dL (0.57-1.11); EST GLOMERULAR FILTRATION RATE > 60 ML/MIN (60-); GLUCOSE 93 mg/dL (74-118); POTASSIUM 3.1 mmol/L (3.5-5.1); SODIUM 142 mmol/L (136-145)
[2018-02-22 06:02] LABS: BUN/CREATININE RATIO 9 (6-25)
[2018-02-22] MEDS ORDERED: POTASSIUM CHLORIDE 20 MEQ TAB CR PO ONE (08:15)
[2018-02-22] MEDS: RAMIPRIL 5 MG CAP PO SCH (09:14)
[2018-02-22] MEDS: DILTIAZEM HCL ER 120 MG CAPCR PO SCH (09:15)
[2018-02-22] MEDS: ONDANSETRON HCL INJ 2 MG/ML VIAL IV PRN (16:11)
[2018-02-22] MEDS ORDERED: PANTOPRAZOLE 40 MG 10ML VIAL IV ONE (19:55)
[2018-02-22] MEDS: SIMVASTATIN 20 MG TAB PO SCH (20:18)
[2018-02-23] VITALS (7 sets, daily range): BP systolic 129–152; BP diastolic 61–79
[2018-02-23] MEDS: PIPER-TAZ 3.375 GM 50 ML IV SCH ×5 (00:10→23:31)
[2018-02-23 05:37] LABS: ANION GAP 12.6 mmol/L (8-16); BLOOD UREA NITROGEN < 5 mg/dL (7-26); CALCIUM 9.1 mg/dL (8.4-10.2); CARBON DIOXIDE 26 mmol/L (22-29); CHLORIDE 106 mmol/L (98-107); CREATININE, SERUM 0.58 mg/dL (0.57-1.11); EST GLOMERULAR FILTRATION RATE > 60 ML/MIN (60-); GLUCOSE 94 mg/dL (74-118); POTASSIUM 3.6 mmol/L (3.5-5.1); SODIUM 141 mmol/L (136-145)
[2018-02-23 05:40] LABS: BUN/CREATININE RATIO 9 (6-25)
[2018-02-23] MEDS: RAMIPRIL 5 MG CAP PO SCH (09:09)
[2018-02-23] MEDS: DILTIAZEM HCL ER 120 MG CAPCR PO SCH (09:10)
[2018-02-23] MEDS: PANTOPRAZOLE SOD 40 MG TABEC PO SCH ×2 (09:10→16:46)
[2018-02-23] MEDS: ONDANSETRON HCL INJ 2 MG/ML VIAL IV PRN (16:46)
[2018-02-23] MEDS: SIMVASTATIN 20 MG TAB PO SCH (20:45)
[2018-02-24] VITALS (9 sets, daily range): BP systolic 112–139; BP diastolic 58–73
[2018-02-24] MEDS: PIPER-TAZ 3.375 GM 50 ML IV SCH ×4 (05:35→23:27)
[2018-02-24] MEDS: RAMIPRIL 5 MG CAP PO SCH (07:46)
[2018-02-24] MEDS: PANTOPRAZOLE SOD 40 MG TABEC PO SCH ×2 (07:52→16:51)
[2018-02-24] MEDS: DILTIAZEM HCL ER 120 MG CAPCR PO SCH (07:52)
[2018-02-24] MEDS: ONDANSETRON HCL INJ 2 MG/ML VIAL IV PRN (09:04)
[2018-02-24] MEDS: SIMVASTATIN 20 MG TAB PO SCH (20:29)
[2018-02-25] VITALS: BP 131/60
[2018-02-25 04:19] VITALS: BP 127/61
[2018-02-25] MEDS: PIPER-TAZ 3.375 GM 50 ML IV SCH (05:23)
--- NOTE | 2018-02-25 07:32 | Progress Note ---
DATE: Patient had come in for abdominal pain, diarrhea and fever with a history of adjuvant chemotherapy for breast cancer. The patient is currently afebrile. Had a good size bowel movement today. No diarrhea. No nausea or vomiting. OBJECTIVE VITALS: The patient's temperature is 97.2, pulse of 63, blood pressure is 127/62, SpO2 of 96%. The patient is on Zosyn and morphine sulfate for pain control. The patient is also getting Lomotil as needed and her blood pressure medications. HEENT: Normocephalic and atraumatic. Pupils reactive to light and accommodation. CV: S1 and S2 normal. Regular rate and rhythm. ABDOMEN: Soft, nontender and nondistended. Good bowel sounds. EXTREMITIES: No clubbing. No cyanosis. No edema. LABS: BUN is less than 0.5. Creatinine 0.58. Hemoglobin of 12.6, hematocrit of 38.8. ALT and AST are normal. ASSESSMENT 1. Diarrhea: Stool cultures are negative. Negative for . She is tolerating p.o. and she can be discharged. 2. Carcinoma of the left breast: The patient is on neoadjuvant treatment. Will continue with that. 3. Hypertension: Continue on the same medication. The patient will be discharged home on Lomotil. For further information, look in the chart. Need to follow up with her primary care physician in about a weeks' time, and also chemotherapy will be delivered Sunday or Sunday. For further information, look in the chart. Job#: [id number] JOHN
[2018-02-25] MEDS ORDERED: LOMOTIL TABLET1 EACH PO (07:36)
[2018-02-25 08:00] VITALS: BP 132/61
[2018-02-25] MEDS: PANTOPRAZOLE SOD 40 MG TABEC PO SCH (08:17)
[2018-02-25] MEDS: DILTIAZEM HCL ER 120 MG CAPCR PO SCH (08:17)
[2018-02-25] MEDS: RAMIPRIL 5 MG CAP PO SCH (08:17)
== END 2018-02-25 08:53 | disposition home or self-care (01) | DRG 395 ==
LOC: ER 14:46 → ERHOLD 19:54 → MED/SURG2 20:56
PROVIDERS: ADMIT Family Medicine; ATTEND Family Medicine
DX: K52.1 Toxic gastroenteritis and colitis (principal); C50.912 Malignant neoplasm of unspecified site of left female breast; T45.1X5A Adverse effect of antineoplastic and immunosuppressive drugs, initial encounter; I10 Essential (primary) hypertension; E87.6 Hypokalemia; E78.5 Hyperlipidemia, unspecified; F41.9 Anxiety disorder, unspecified; K21.9 Gastro-esophageal reflux disease without esophagitis; I95.9 Hypotension, unspecified
CPT/HCPCS: 36415; 74177; 80048; 80053; 81001; 82948; 83605; 83630; 83690; 83880; 84443; 85025; 87040; 87045; 87086; 87177; 87493; 93005; 96367; 99284; J2270; J2405; J2543; J3480; J7030; J7040; Q9967

== ENCOUNTER 2018-05-16 08:35 | Observation (INO) | payer MEDICARE ==
[2018-05-15 11:54] LABS: BASOPHILS # (AUTO) 0.1 (0.0-0.1); BASOPHILS % 1.1 % (0.0-1.0); EOSINOPHILS # (AUTO) 0.1 (0.0-0.4); EOSINOPHILS % 1.6 % (0.0-6.0); HEMOGLOBIN 14.2 g/dL (12.0-16.0); LYMPHOCYTES # (AUTO) 1.9 (1.0-3.2); LYMPHOCYTES % 22.3 % (18.0-39.1); MEAN CORPUSCULAR HEMOGLOBIN 32.5 pg (28-32); MEAN CORPUSCULAR HGB CONC 33.8 g/dL (31-35); MEAN CORPUSCULAR VOLUME 96.1 fL (81-99); MONOCYTES # (AUTO) 0.8 (0.2-0.8); MONOCYTES % 9.4 % (4.4-11.3); NEUTROPHILS # (AUTO) 5.6 (2.1-6.9); NEUTROPHILS % 65.2 % (38.7-80.0); PLATELET COUNT 298 x10e3/uL (140-360); RED BLOOD COUNT 4.37 x10e6/uL (3.6-5.1); RED CELL DISTRIBUTION WIDTH 14.2 % (11.7-14.4)
[2018-05-15 12:06] LABS: ANION GAP 17.1 mmol/L (8-16); BLOOD UREA NITROGEN 12 mg/dL (7-26); BUN/CREATININE RATIO 16 (6-25); CALCIUM 9.6 mg/dL (8.4-10.2); CARBON DIOXIDE 22 mmol/L (22-29); CHLORIDE 101 mmol/L (98-107); CREATININE, SERUM 0.76 mg/dL (0.57-1.11); EST GLOMERULAR FILTRATION RATE > 60 ML/MIN (60-); GLUCOSE 96 mg/dL (74-118); POTASSIUM 4.1 mmol/L (3.5-5.1); SODIUM 136 mmol/L (136-145)
--- NOTE | 2018-05-15 12:55 | Diagnostic Imaging Report ---
EXAM: CHEST 2 VIEWS, PA and lateral DATE: 05/15/2018 Time stamp on exam: 11:52 AM INDICATION: Breast mass COMPARISON: None FINDINGS: LINES/TUBES: Right subclavian approach chest wall Port-A-Cath. Tip overlying the SVC. LUNGS: No consolidations or edema. PLEURA: No effusions or pneumothorax. HEART AND MEDIASTINUM: Normal size and contour. BONES AND SOFT TISSUES: No acute findings. Right breast is absent. IMPRESSION: No acute thoracic abnormality. Signed by: Dr. Shon Solis DO on 05/15/2018 12:52 PM
[~2018-05-16] VITALS: Ht 167.6 cm; Wt 83.0 kg
[~2018-05-16 08:35] MED LIST changes: +LOMOTIL TABLET1 EACH PO; +TRIAMTERENE-HCTZ1 EA PO; +VITAMIN D35000 UNIT
[2018-05-16] MEDS ORDERED: HYDROMORPHONE 1MG/1ML INJ IV PRN (12:30)
[2018-05-16] MEDS ORDERED: ACETAMINOPHEN 1000 MG/100 ML IV PRN (12:30)
[2018-05-16] MEDS ORDERED: HYDROCODONE/APAP 7.5MG-325MG 1 EA TAB PO PRN (12:30)
[2018-05-16] MEDS ORDERED: ONDANSETRON HCL INJ 2MG/ML 2ML 2 MG/ML VIAL IV PRN (12:30)
--- NOTE | 2018-05-16 13:00 | Operative Report ---
DATE OF PROCEDURE: May 16, 2018 PREOPERATIVE DIAGNOSIS: Carcinoma of the left breast. POSTOPERATIVE DIAGNOSIS: Carcinoma of the left breast. OPERATION PERFORMED: Left modified radical mastectomy. ANESTHESIA: General. COMPLICATIONS: None. ESTIMATED BLOOD LOSS: 50 mL. DESCRIPTION OF PROCEDURE: With the patient lying in bed in the supine position under good general anesthesia, the left breast and chest were prepped with Betadine solution and draped in the usual manner. An elliptical incision was made to include the nipple areolar complex. Incision was deepened into the subcutaneous tissue and flaps were then developed in a circumferential fashion. The borders of flaps were medially to the sternum, inferiorly to the rectus fascia, superiorly the clavicle, laterally the latissimus dorsi. The breast tissue was then taken off of the pectoralis major muscle including the fascia. The lateral border of the pectoralis major was entered, and the groove of the pectoralis major manner was then dissected and the fat pad was included in the specimen. The lateral border of pectoralis minor was then entered and the axilla was entered at the top. The axillary vein was identified and preserved. The fat pad below the axillary vein was then slowly and carefully from all of the structures. The long thoracic and thoracodorsal nerve were identified and preserved. All bleeding points and lymphatics were ligated with 3-0 silk and divided. The breast and axillary fat pad were removed and sent for pathological examination. After this was done, the whole area was thoroughly irrigated. Perfect hemostasis was ascertained. The cavity was then drained with two 10 flat Jovany-Weston drains, one in the pectoralis area and the other one in the axillary area. The wound was then closed with interrupted vertical mattress sutures of 2-0 and 3-0 silk. Dressings were applied. The sponge, lap and needle count was correct. Patient tolerated the procedure well and returned to the recovery room in stable condition. Job#: [id number] MA
[2018-05-16] MEDS: SODIUM CHLORIDE 0.9% 1000ML 1,000 ML IV SCH ×2 (14:45→23:53)
[2018-05-16] MEDS ORDERED: HYDROMORPHONE 2MG/ML 2 MG/ML ML IV PRN (14:45)
[2018-05-16 15:53] VITALS: BP 120/60
[2018-05-16 16:03] VITALS: BP 120/60
[2018-05-16 16:15] VITALS: BP 120/60
[2018-05-16] MEDS ORDERED: DEXAMETHASONE SOD PHOS INJ 4 MG/ML VIAL ONE (17:33)
[2018-05-16] MEDS ORDERED: ACETAMINOPHEN 1000 MG/100 ML IV ONE (17:33)
[2018-05-16] MEDS ORDERED: PROPOFOL IV EMULSION 10 MG/ML 20 ML VIAL ONE (17:33)
[2018-05-16] MEDS ORDERED: SEVOFLURANE INHAL SOLN 250 ML PEN BTL ONE (17:33)
[2018-05-16] MEDS ORDERED: LIDOCAINE HCL 2% LOCAL INJ 5 ML SDV VIAL INJ ONE (17:33)
[2018-05-16] MEDS ORDERED: ONDANSETRON HCL INJ 2MG/ML 2ML 2 MG/ML VIAL ONE (17:33)
[2018-05-16] MEDS ORDERED: MIDAZOLAM HCL 2 MG/2 ML VIAL ONE (18:59)
[2018-05-16] MEDS ORDERED: FENTANYL CITRATE/PF 100MCG/2 ML INJ ONE (18:59)
[2018-05-16 19:00] VITALS: BP 130/63
--- NOTE | 2018-05-16 19:15 | NUR ---
patient recieved awake, alert, lying quietly in bed. no c/o pain noted at this time. ivf continue to infuse without difficulty. dressing to left breast c,d,i. teddy drains x 2 to left breast. patient oob to bathroom with assistance. pm assessment complete. patient instructed to call for assistance when needed.
[2018-05-16 20:00] VITALS: BP 130/63
[2018-05-16] MEDS ORDERED: SIMVASTATIN 20 MG TAB PO SCH (21:00)
[2018-05-16] MEDS ORDERED: SIMVASTATIN 40 MG TAB PO SCH (21:00)
[2018-05-16] MEDS ORDERED: PANTOPRAZOLE SOD 40 MG TABEC PO SCH (21:00)
[2018-05-17 00:08] VITALS: BP 153/70
[2018-05-17 05:59] VITALS: BP 167/73
--- NOTE | 2018-05-17 07:03 | NUR ---
Received patient mid fowlers position, side rails upx2, call light within reach. AAOX4 to time, person, place, situation. Respirations even and unlabored. Dressing to chest clean, dry, and intact. Instructed patient to use call light for assistance. Voiced understanding. Will continue to monitor.
[2018-05-17 08:30] VITALS: BP 177/74
[2018-05-17 08:33] VITALS: BP 177/74
[2018-05-17] MEDS ORDERED: DILTIAZEM HCL 240 MG PO SCH (09:00)
[2018-05-17] MEDS ORDERED: DILTIAZEM HCL ER 120 MG CAPCR PO SCH (09:00)
[2018-05-17] MEDS ORDERED: RAMIPRIL 5 MG CAP PO SCH (09:00)
[2018-05-17] MEDS: SODIUM CHLORIDE 0.9% 1000ML 1,000 ML IV SCH (09:30)
--- NOTE | 2018-05-17 10:32 | NUR ---
MARY EXPLAINED TO PT, SIGNED BY PT AND PLACED ON CHART COPY TO PT IN CARE TRANSITION FOLDER
[2018-05-17 11:48] VITALS: BP 166/73
--- NOTE | 2018-05-17 12:20 | NUR ---
CASE MANAGEMENT ASSESSMENT [employer] to bedside to discuss plan of care with patient/family. CM/SW role and care transitions discussed. Anticipated discharge plan discussed along with duration of care. CM/SW discussed patients right to make decisions in care. CM/SW work hours given. Patient lives: with Thien Admit/Transfer: from PACU Hospital/ER visits since last admit: January 2018. no ED visits since then POA/Emergency contact: Thien Phoenix [phone] Current/Previous Home Health: none PCP/Follow-up Care: Dr. Taz Longoria - PCP; Dr. Curly Fishman - surgery; advised pt to follow up with her MD within 7 days of discharge or as instructed Current/Previous DME: none Medications (referring to index hospitalization or the first time you were in the hospital) a. Were changes made in your medications when you were in the hospital on Jan 2018? no changes b. Did you understand the changes? n/a c. Were you able to obtain your new medications right away? n/a d. Were you able to take your medications like the doctor wanted you to? yes e. Did the hospital give you an accurate, easy to understand list of medications when you left? yes Scale of 1-10 how comfortable does patient feel with disease management in outpatient settin Other Services: was receiving chemo. completed treatment on Apr 09, 2018 Employment Status: retired Areas of Concerns: none Referral Needs: none Education Needs: post surgical education, medical management IMM/HERNANDEZ given and signed (if applicable): HERNANDEZ in chart Goal for discharge: home CM/SW left business card at the bedside with contact information. Name and number was also written on the patients whiteboard. Patient verbalized understanding of discussion. CM will follow-up with ongoing discharge and transition of care needs.
[2018-05-17 15:53] VITALS: BP 149/69
--- NOTE | 2018-05-17 18:00 | NUR ---
giving discharge instructions to patient at bedside. Patient to measure CHIO drain output at home.
--- NOTE | 2018-05-17 18:10 | NUR ---
Instructed patient and how to drain teddy drain, measure drainage on measuring cup, and care of TEDDY drain. Voiced understanding and returned demonstration. Measuring cup provided to patient.
[2018-05-17] MEDS ORDERED: KEFLEX500 MG PO (18:23)
--- NOTE | 2018-05-17 18:38 | NUR ---
Right wrist IV discontinued. No signs of infiltration noted. 2x2 gauze and tape placed. Taken by PCT via wheelchair to personal car. Accompanied by . AAOX4 to time, person, place, situation. Respirations even and unlabored. Chest Dressing clean dry, and intact. JPx2 drainage draining sanguinous drainage.Discharge instructions, rx, and all personal belongings taken with patient.
== END 2018-05-17 18:38 | disposition home or self-care (01) ==
LOC: OR 08:35 → PACU V 12:20 → MED/SURG 14:32
PROVIDERS: ADMIT Surgery; ATTEND Surgery
DX: C50.912 Malignant neoplasm of unspecified site of left female breast (principal); Z01.810 Encounter for preprocedural cardiovascular examination; Z01.812 Encounter for preprocedural laboratory examination; Z01.811 Encounter for preprocedural respiratory examination; K21.9 Gastro-esophageal reflux disease without esophagitis; I10 Essential (primary) hypertension
CPT/HCPCS: 19307; 36415; 71046; 80048; 85025; 88309; G0378 ×2; J0131; J1100; J2001; J2250; J2405; J2704; J7030 ×2; S0164

== ENCOUNTER → 2021-07-19 | Outpatient (CLI) | payer MEDICARE ==
[~2021-07-19] MED LIST changes: +IOPAMIDOL 370 MG/ML 100 ML INFUS..BTL INJ ONE; +SODIUM CHLORIDE 0.9% 50ML 50 ML ONE; +TAMOXIFEN CITRA10 MG PO
[2021-07-19 16:23] LABS: CREATININE, SERUM 0.7 mg/dL (0.57-1.11)
== END ==
LOC: CT 15:23
PROVIDERS: ATTEND Internal Medicine Gastroenterology
DX: R10.32 Left lower quadrant pain (principal)
CPT/HCPCS: 36415; 74177; 82565; 84520; Q9967

== ENCOUNTER → 2021-07-26 | Day surgery (SDC) | payer MEDICARE ==
[2021-07-25 10:45] LABS: BASOPHILS # (AUTO) 0.1 (0.0-0.1); BASOPHILS % 0.6 % (0.0-1.0); EOSINOPHILS # (AUTO) 0.1 (0.0-0.4); EOSINOPHILS % 0.7 % (0.0-6.0); HEMOGLOBIN 15.7 g/dL (12.0-16.0); LYMPHOCYTES # (AUTO) 2.3 (1.0-3.2); LYMPHOCYTES % 26.8 % (18.0-39.1); MEAN CORPUSCULAR HEMOGLOBIN 32.1 pg (28-32); MEAN CORPUSCULAR HGB CONC 33.4 g/dL (31-35); MEAN CORPUSCULAR VOLUME 96.1 fL (81-99); MONOCYTES # (AUTO) 0.7 (0.2-0.8); MONOCYTES % 8.5 % (4.4-11.3); NEUTROPHILS # (AUTO) 5.5 (2.1-6.9); NEUTROPHILS % 63.1 % (38.7-80.0); PLATELET COUNT 236 x10e3/uL (140-360); RED BLOOD COUNT 4.89 x10e6/uL (3.6-5.1); RED CELL DISTRIBUTION WIDTH 13.1 % (11.7-14.4)
[~2021-07-26] MED LIST changes: +EPHEDRINE SULFATE INJ 50 MG/ML VIAL ONE; +FENTANYL CITRATE/PF 100MCG/2 ML INJ ONE; +HYOSCYAMINE SULFATE 0.5 MG/ML INJ ONE; -IOPAMIDOL 370 MG/ML 100 ML INFUS..BTL INJ ONE; +MIDAZOLAM HCL 2 MG/2 ML VIAL ONE; +PHENYLEPHRINE HCL 1% 10 MG/ML VIAL ONE; +PROPOFOL IV EMULSION 10 MG/ML 20 ML VIAL ONE; -SODIUM CHLORIDE 0.9% 50ML 50 ML ONE
[2021-07-26 14:25] VITALS: BP 98/64
== END | disposition home or self-care (01) ==
LOC: OR 11:29
PROVIDERS: ATTEND Internal Medicine Gastroenterology
DX: K29.50 Unspecified chronic gastritis without bleeding (principal); D12.0 Benign neoplasm of cecum; K31.7 Polyp of stomach and duodenum; K29.80 Duodenitis without bleeding; K20.90 Esophagitis, unspecified without bleeding; K31.89 Other diseases of stomach and duodenum; K21.9 Gastro-esophageal reflux disease without esophagitis; K57.30 Diverticulosis of large intestine without perforation or abscess without bleeding; K64.8 Other hemorrhoids; Z71.3 Dietary counseling and surveillance; Z71.89 Other specified counseling; R63.4 Abnormal weight loss; I10 Essential (primary) hypertension; Z88.8 Allergy status to other drugs, medicaments and biological substances; Z01.810 Encounter for preprocedural cardiovascular examination; Z01.812 Encounter for preprocedural laboratory examination; Z20.822 Contact with and (suspected) exposure to COVID-19; Z79.899 Other long term (current) drug therapy; Z85.3 Personal history of malignant neoplasm of breast
CPT/HCPCS: 36415; 43239; 45380; 85025; 88305; 88312; 93005; J1980; J2250; J2370; J2704; J3010; U0002; 45378

== ENCOUNTER → 2021-09-26 | Day surgery (SDC) | payer MEDICARE ==
[2021-09-22 11:16] LABS: BASOPHILS % 0.5 % (0.0-1.0); EOSINOPHILS # (AUTO) 0.1 (0.0-0.4); EOSINOPHILS % 1.1 % (0.0-6.0); HEMATOCRIT 48.8 % (34.2-44.1); HEMOGLOBIN 15.4 g/dL (12.0-16.0); LYMPHOCYTES # (AUTO) 2.1 (1.0-3.2); MEAN CORPUSCULAR HEMOGLOBIN 32.1 pg (28-32); MEAN CORPUSCULAR HGB CONC 31.6 g/dL (31-35); MEAN CORPUSCULAR VOLUME 101.7 fL (81-99); MONOCYTES # (AUTO) 0.6 (0.2-0.8); MONOCYTES % 7.7 % (4.4-11.3); NEUTROPHILS # (AUTO) 5.1 (2.1-6.9); NEUTROPHILS % 64.2 % (38.7-80.0); PLATELET COUNT 240 x10e3/uL (140-360); RED CELL DISTRIBUTION WIDTH 12.7 % (11.7-14.4)
[2021-09-22 11:34] LABS: ANION GAP 17.3 mmol/L (8-16); CALCIUM 9.3 mg/dL (8.4-10.2); CREATININE, SERUM 0.82 mg/dL (0.57-1.11); POTASSIUM 4.3 mmol/L (3.5-5.1)
[~2021-09-26] MED LIST changes: +ARIMIDEX1 MG PO; +BUPIVACAINE HCL 0.25% 10ML MPF VIAL INJ ONE; +DEXAMETHASONE SOD PHOS INJ 4 MG/ML SDV ONE; -EPHEDRINE SULFATE INJ 50 MG/ML VIAL ONE; -HYOSCYAMINE SULFATE 0.5 MG/ML INJ ONE; +KETOROLAC TROMETHAMINE 30 MG/ML VIAL ONE; +LIDOCAINE HCL 2% LOCAL INJ 5 ML SDV VIAL INJ ONE; +ONDANSETRON HCL INJ 2MG/ML 2ML 2 MG/ML VIAL ONE; -PHENYLEPHRINE HCL 1% 10 MG/ML VIAL ONE; +POVIDONE IODINE 0.05% 0.05 % ML PO ONE; +SEVOFLURANE INHAL SOLN 250 ML PEN BTL ONE
[2021-09-26 11:30] VITALS: BP 140/73
== END | disposition home or self-care (01) ==
LOC: OR 07:38
PROVIDERS: ATTEND Surgery
DX: T82.594A Other mechanical complication of infusion catheter, initial encounter (principal); C50.919 Malignant neoplasm of unspecified site of unspecified female breast; I10 Essential (primary) hypertension; R73.03 Prediabetes; K21.9 Gastro-esophageal reflux disease without esophagitis; N39.0 Urinary tract infection, site not specified; I45.10 Unspecified right bundle-branch block; M19.90 Unspecified osteoarthritis, unspecified site; Y83.8 Other surgical procedures as the cause of abnormal reaction of the patient, or of later complication, without mention of misadventure at the time of the procedure; Z01.812 Encounter for preprocedural laboratory examination; Z01.818 Encounter for other preprocedural examination; Z20.822 Contact with and (suspected) exposure to COVID-19; Z79.890 Hormone replacement therapy; Z79.899 Other long term (current) drug therapy; Z87.891 Personal history of nicotine dependence
CPT/HCPCS: 0223U; 36415; 36590; 71046; 80048; 85025; C1713 ×2; J1100; J1885; J2001; J2250; J2405; J2704; J3010

== ENCOUNTER 2021-11-23 15:54 | Inpatient (IN) | payer MEDICARE ==
[~2021-11-23] VITALS: Ht 167.6 cm; Wt 80.9 kg
[~2021-11-23 15:54] MED LIST changes: -IOPAMIDOL 370 MG/ML 100 ML INFUS..BTL INJ ONE
[2021-11-23] MEDS ORDERED: ONDANSETRON HCL INJ 2MG/ML 2ML 2 MG/ML VIAL IV PRN (17:00)
[2021-11-23] MEDS ORDERED: Morphine 4mg INJECTION 4 MG/ML INJ IV PRN (17:00)
[2021-11-23 17:20] LABS: BASOPHILS # (AUTO) 0.1 (0.0-0.1); BASOPHILS % 0.6 % (0.0-1.0); EOSINOPHILS # (AUTO) 0.1 (0.0-0.4); EOSINOPHILS % 0.6 % (0.0-6.0); HEMATOCRIT 49.1 % (34.2-44.1); HEMOGLOBIN 16.2 g/dL (12.0-16.0); LYMPHOCYTES # (AUTO) 1.6 (1.0-3.2); LYMPHOCYTES % 14.3 % (18.0-39.1); MEAN CORPUSCULAR HEMOGLOBIN 31.5 pg (28-32); MEAN CORPUSCULAR VOLUME 95.5 fL (81-99); MONOCYTES # (AUTO) 0.8 (0.2-0.8); MONOCYTES % 7.2 % (4.4-11.3); NEUTROPHILS # (AUTO) 8.6 (2.1-6.9); NEUTROPHILS % 76.9 % (38.7-80.0); PLATELET COUNT 213 x10e3/uL (140-360); RED BLOOD COUNT 5.14 x10e6/uL (3.6-5.1); RED CELL DISTRIBUTION WIDTH 12.2 % (11.7-14.4)
[2021-11-23] MEDS: SODIUM CHLORIDE 0.9% 1000ML 1,000 ML IV SCH ×2 (17:35→21:27)
[2021-11-23 17:36] LABS: ALANINE AMINOTRANSFERASE 10 IU/L (0-55); ALBUMIN 4.3 g/dL (3.5-5.0); ALKALINE PHOSPHATASE 73 IU/L (40-150); BLOOD UREA NITROGEN 12 mg/dL (7-26); BUN/CREATININE RATIO 17 (6-25); CALCIUM 9.5 mg/dL (8.4-10.2); CARBON DIOXIDE 23 mmol/L (22-29); CHLORIDE 102 mmol/L (98-107); CREATINE KINASE 39 IU/L (29-168); CREATININE, SERUM 0.69 mg/dL (0.57-1.11); GLUCOSE 100 mg/dL (74-118); SODIUM 141 mmol/L (136-145)
[2021-11-23 17:39] LABS: INR 0.92; PROTHROMBIN TIME 13.2 seconds (11.9-14.5)
[2021-11-23 17:40] LABS: PARTIAL THROMBOPLASTIN TIME 28.3 seconds (23.8-35.5)
[2021-11-23] MEDS: ENOXAPARIN INJ 80 MG/0.8 ML SYR SC SCH ×2 (18:24→21:00)
[2021-11-23 20:00] VITALS: BP 135/86
[2021-11-23 20:30] VITALS: BP 155/86
[2021-11-24] VITALS (7 sets, daily range): BP systolic 129–168; BP diastolic 61–86
[2021-11-24 01:04] LABS: CREATINE KINASE MB 1.5 ng/mL (0-5.0)
[2021-11-24 06:13] LABS: BASOPHILS # (AUTO) 0.1 (0.0-0.1); BASOPHILS % 0.9 % (0.0-1.0); EOSINOPHILS # (AUTO) 0.2 (0.0-0.4); EOSINOPHILS % 2.1 % (0.0-6.0); HEMATOCRIT 40.7 % (34.2-44.1); HEMOGLOBIN 13.1 g/dL (12.0-16.0); LYMPHOCYTES % 24.8 % (18.0-39.1); MEAN CORPUSCULAR HEMOGLOBIN 31.2 pg (28-32); MEAN CORPUSCULAR HGB CONC 32.2 g/dL (31-35); MEAN CORPUSCULAR VOLUME 96.9 fL (81-99); MONOCYTES # (AUTO) 0.9 (0.2-0.8); MONOCYTES % 11.7 % (4.4-11.3); NEUTROPHILS # (AUTO) 4.8 (2.1-6.9); NEUTROPHILS % 60.1 % (38.7-80.0); PLATELET COUNT 169 x10e3/uL (140-360); RED CELL DISTRIBUTION WIDTH 12.3 % (11.7-14.4)
[2021-11-24 06:43] LABS: CREATINE KINASE MB 1.2 ng/mL (0-5.0)
[2021-11-24 07:04] LABS: ALBUMIN 2.9 g/dL (3.5-5.0); ANION GAP 16.7 mmol/L (8-16); CALCIUM 8.1 mg/dL (8.4-10.2); CREATININE, SERUM 0.56 mg/dL (0.57-1.11); POTASSIUM 3.7 mmol/L (3.5-5.1)
[2021-11-24] MEDS: ENOXAPARIN INJ 80 MG/0.8 ML SYR SC SCH ×4 (09:00→21:36)
[2021-11-24] MEDS: SODIUM CHLORIDE 0.9% 1000ML 1,000 ML IV SCH (09:50)
[2021-11-24 17:58] LABS: CREATINE KINASE MB 1.3 ng/mL (0-5.0)
[2021-11-25] VITALS: BP 139/71
[2021-11-25 04:00] VITALS: BP 147/76
[2021-11-25 04:55] LABS: BASOPHILS # (AUTO) 0.1 (0.0-0.1); BASOPHILS % 0.8 % (0.0-1.0); EOSINOPHILS # (AUTO) 0.1 (0.0-0.4); EOSINOPHILS % 1.5 % (0.0-6.0); HEMOGLOBIN 13.2 g/dL (12.0-16.0); LYMPHOCYTES # (AUTO) 2.2 (1.0-3.2); LYMPHOCYTES % 24.4 % (18.0-39.1); MEAN CORPUSCULAR HGB CONC 33.8 g/dL (31-35); MEAN CORPUSCULAR VOLUME 91.5 fL (81-99); MONOCYTES % 11.1 % (4.4-11.3); NEUTROPHILS # (AUTO) 5.4 (2.1-6.9); NEUTROPHILS % 61.6 % (38.7-80.0); PLATELET COUNT 197 x10e3/uL (140-360); RED BLOOD COUNT 4.26 x10e6/uL (3.6-5.1); RED CELL DISTRIBUTION WIDTH 12.1 % (11.7-14.4)
[2021-11-25 05:08] LABS: INR 0.95; PROTHROMBIN TIME 13.6 seconds (11.9-14.5)
[2021-11-25 05:09] LABS: PARTIAL THROMBOPLASTIN TIME 36.5 seconds (23.8-35.5)
[2021-11-25 05:21] LABS: ANION GAP 15.4 mmol/L (8-16); CALCIUM 8.2 mg/dL (8.4-10.2); CREATININE, SERUM 0.55 mg/dL (0.57-1.11); POTASSIUM 3.4 mmol/L (3.5-5.1)
[2021-11-25] MEDS ORDERED: ACETAMINOPHEN 325 MG TAB PO PRN (07:45)
[2021-11-25 08:04] VITALS: BP 150/91
[2021-11-25 08:39] VITALS: BP 150/91
[2021-11-25] MEDS ORDERED: RIVAROXABAN 15 MG TABLET PO SCH (09:00)
== END 2021-11-25 11:35 | disposition home or self-care (01) | DRG 299 ==
LOC: ER 16:37 → ERHOLD 18:22 → MED/SURG 19:40
PROVIDERS: ADMIT Family Medicine; ATTEND Family Medicine
DX: I82.4Z2 Acute embolism and thrombosis of unspecified deep veins of left distal lower extremity (principal); I26.99 Other pulmonary embolism without acute cor pulmonale; I10 Essential (primary) hypertension; K21.9 Gastro-esophageal reflux disease without esophagitis; E78.5 Hyperlipidemia, unspecified; Z85.3 Personal history of malignant neoplasm of breast; Z90.11 Acquired absence of right breast and nipple; Z90.49 Acquired absence of other specified parts of digestive tract; Z80.1 Family history of malignant neoplasm of trachea, bronchus and lung; Z20.822 Contact with and (suspected) exposure to COVID-19
CPT/HCPCS: 0223U; 36415; 71260; 80048; 80053; 82550; 82553; 84484; 85025; 85610; 85730; 93005; 93306; 96361; 99251; 99284; J1650; J2270; J2405; J7030

== ENCOUNTER → 2021-11-23 | Outpatient (CLI) | payer MEDICARE ==
[~2021-11-23] MED LIST changes: -BUPIVACAINE HCL 0.25% 10ML MPF VIAL INJ ONE; -DEXAMETHASONE SOD PHOS INJ 4 MG/ML SDV ONE; -FENTANYL CITRATE/PF 100MCG/2 ML INJ ONE; +IOPAMIDOL 370 MG/ML 100 ML INFUS..BTL INJ ONE; -KETOROLAC TROMETHAMINE 30 MG/ML VIAL ONE; -LIDOCAINE HCL 2% LOCAL INJ 5 ML SDV VIAL INJ ONE; -MIDAZOLAM HCL 2 MG/2 ML VIAL ONE; -ONDANSETRON HCL INJ 2MG/ML 2ML 2 MG/ML VIAL ONE; -POVIDONE IODINE 0.05% 0.05 % ML PO ONE; -PROPOFOL IV EMULSION 10 MG/ML 20 ML VIAL ONE; -SEVOFLURANE INHAL SOLN 250 ML PEN BTL ONE
== END ==
LOC: RAD 15:09
PROVIDERS: ATTEND Family Medicine
DX: R60.9 Edema, unspecified (principal)
CPT/HCPCS: 93970; Q9967

== ENCOUNTER 2024-02-11 12:12 | Observation (INO) | payer MEDICARE ==
[~2024-02-11] VITALS: Ht 160 cm; Wt 71.2 kg
[2024-02-11 12:30] VITALS: TEMP 98.2
[2024-02-11 14:58] LABS: BASOPHILS # (AUTO) 0.1 (0.0-0.1); BASOPHILS % 0.8 % (0.0-1.0); EOSINOPHILS % 0.3 % (0.0-6.0); HEMATOCRIT 49.6 % (34.2-44.1); HEMOGLOBIN 16.2 g/dL (12.0-16.0); LYMPHOCYTES # (AUTO) 2.2 (1.0-3.2); LYMPHOCYTES % 35.2 % (18.0-39.1); MEAN CORPUSCULAR HEMOGLOBIN 31.3 pg (28-32); MEAN CORPUSCULAR HGB CONC 32.7 g/dL (31-35); MEAN CORPUSCULAR VOLUME 95.8 fL (81-99); MONOCYTES # (AUTO) 0.4 (0.2-0.8); MONOCYTES % 7.2 % (4.4-11.3); NEUTROPHILS # (AUTO) 3.5 (2.1-6.9); NEUTROPHILS % 56.2 % (38.7-80.0); PLATELET COUNT 275 x10e3/uL (140-360); RED BLOOD COUNT 5.18 x10e6/uL (3.6-5.1); RED CELL DISTRIBUTION WIDTH 13.1 % (11.7-14.4); WHITE BLOOD COUNT 6.14 x10e3/uL (4.8-10.8)
[2024-02-11] MEDS: APIXABAN 5 MG TABLET PO SCH (14:59)
[2024-02-11 15:13] LABS: INR 2.05; PROTHROMBIN TIME 24.2 seconds (11.9-14.5)
[2024-02-11 15:14] LABS: PARTIAL THROMBOPLASTIN TIME 39.5 seconds (23.8-35.5)
[2024-02-11 15:22] LABS: ALANINE AMINOTRANSFERASE 12 IU/L (0-55); ALBUMIN 4.2 g/dL (3.5-5.0); ALBUMIN/GLOBULIN RATIO 1.3 (0.8-2.0); ALKALINE PHOSPHATASE 73 IU/L (40-150); ANION GAP 17.8 mmol/L (8-16); BLOOD UREA NITROGEN 6 mg/dL (7-26); BUN/CREATININE RATIO 9 (6-25); CARBON DIOXIDE 23 mmol/L (22-29); CHLORIDE 104 mmol/L (98-107); CREATINE KINASE 34 IU/L (29-168); EST GLOMERULAR FILTRATION RATE 87 ML/MIN (>=60); GLUCOSE 88 mg/dL (74-118); POTASSIUM 3.8 mmol/L (3.5-5.1); SODIUM 141 mmol/L (136-145); TOTAL PROTEIN 7.5 g/dL (6.5-8.1)
[2024-02-11 15:29] LABS: TROPONIN I < 0.001 ng/mL (0-0.300)
[2024-02-11] MEDS ORDERED: Morphine 4mg INJECTION 4 MG/ML INJ IV PRN (16:00)
[2024-02-11] MEDS: SODIUM CHLORIDE 0.9% 1000ML 1,000 ML IV SCH (16:00)
[2024-02-11 16:47] VITALS: PULSE 78; RESP 18; O2SAT 98
[2024-02-11 17:00] VITALS: RESP 18
[2024-02-11 20:29] VITALS: PULSE 66
[2024-02-11 21:18] VITALS: BP 150/73; PULSE 62; RESP 20; TEMP 98.2; O2SAT 99
[2024-02-11] MEDS ORDERED: VITAMIN D350 MC1 PO (21:38)
[2024-02-11] MEDS ORDERED: RAMIPRIL10 MG (21:38)
[2024-02-11] MEDS: RAMIPRIL 5 MG CAP PO SCH (22:15)
[2024-02-12] VITALS (7 sets, daily range): BP systolic 138–166; BP diastolic 67–84; PULSE 60–69; RESP 16–20; TEMP 97.6–99; O2SAT 98–100
[2024-02-12 06:15] LABS: BASOPHILS # (AUTO) 0.1 (0.0-0.1); BASOPHILS % 0.9 % (0.0-1.0); EOSINOPHILS # (AUTO) 0.1 (0.0-0.4); EOSINOPHILS % 1.5 % (0.0-6.0); LYMPHOCYTES # (AUTO) 2.6 (1.0-3.2); LYMPHOCYTES % 43.9 % (18.0-39.1); MEAN CORPUSCULAR HEMOGLOBIN 31.4 pg (28-32); MEAN CORPUSCULAR HGB CONC 32.6 g/dL (31-35); MEAN CORPUSCULAR VOLUME 96.4 fL (81-99); MONOCYTES # (AUTO) 0.6 (0.2-0.8); MONOCYTES % 10.6 % (4.4-11.3); NEUTROPHILS # (AUTO) 2.5 (2.1-6.9); NEUTROPHILS % 42.9 % (38.7-80.0); PLATELET COUNT 253 x10e3/uL (140-360); RED BLOOD COUNT 4.77 x10e6/uL (3.6-5.1); RED CELL DISTRIBUTION WIDTH 13.2 % (11.7-14.4); WHITE BLOOD COUNT 5.85 x10e3/uL (4.8-10.8)
[2024-02-12 06:50] LABS: ALBUMIN 3.5 g/dL (3.5-5.0); ALBUMIN/GLOBULIN RATIO 1.3 (0.8-2.0); ANION GAP 13.5 mmol/L (8-16); BILIRUBIN,TOTAL 0.9 mg/dL (0.2-1.2); CALCIUM 9.4 mg/dL (8.4-10.2); CREATININE, SERUM 0.61 mg/dL (0.57-1.11); POTASSIUM 3.5 mmol/L (3.5-5.1); TOTAL PROTEIN 6.3 g/dL (6.5-8.1)
[2024-02-12 07:12] LABS: TROPONIN I 0.01 ng/mL (0-0.300)
[2024-02-12] MEDS: DILTIAZEM HCL ER 120 MG CAP PO SCH (08:38)
[2024-02-12] MEDS: PANTOPRAZOLE SOD 40 MG TABEC PO SCH (08:38)
[2024-02-12] MEDS: CHOLECALCIFEROL 1,000 UNIT TAB PO SCH (08:38)
[2024-02-12 15:18] LABS: CREATINE KINASE 42 IU/L (29-168)
[2024-02-12 15:26] LABS: TROPONIN I < 0.001 ng/mL (0-0.300)
[2024-02-12] MEDS: ONDANSETRON HCL INJ 2MG/ML 2ML 2 MG/ML VIAL IV PRN (16:27)
[2024-02-12] MEDS ORDERED: ELIQUIS5 MG PO (18:10)
[2024-02-12] MEDS ORDERED: ONDANSETRON HCL 4 MG ORAL DISINTEGRATING TAB PO PRN (18:30)
== END 2024-02-12 18:43 | disposition home or self-care (01) ==
LOC: ER 12:28 → ERHOLD 15:50 → MED/SURG3 20:44
PROVIDERS: ADMIT Family Medicine; ATTEND Family Medicine
DX: I82.512 Chronic embolism and thrombosis of left femoral vein (principal); M79.18 Myalgia, other site; I10 Essential (primary) hypertension; I49.9 Cardiac arrhythmia, unspecified; Z79.01 Long term (current) use of anticoagulants; Z85.3 Personal history of malignant neoplasm of breast; Z90.13 Acquired absence of bilateral breasts and nipples; Z86.711 Personal history of pulmonary embolism; K21.9 Gastro-esophageal reflux disease without esophagitis; E78.5 Hyperlipidemia, unspecified; I25.10 Atherosclerotic heart disease of native coronary artery without angina pectoris
CPT/HCPCS: 36415 ×2; 71045; 80053 ×2; 82550 ×2; 83690; 83880; 84484 ×2; 85025 ×2; 85610; 85730; 93005; 93306; 93971; 94799; 99284; G0378 ×2; J2405; J7030; S0164